=== PATIENT | female | born 2000 | race American Indian/Alaskan Native ===

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

== ENCOUNTER 2020-01-17 04:06 | Outpatient (CLI) | payer MEDICAID ==
[2020-01-17 04:47] VITALS: BP 118/63
[2020-01-17] MEDS ORDERED: LACTATED RINGERS 1,000 ML IV ONE (04:49)
--- NOTE | 2020-01-17 06:25 | Ultrasound Report ---
ULTRASOUND OBSTETRIC Indication: status, maternal pelvic pain. Findings: There is a single intrauterine . BPD = 5 cm = 21 weeks, 1 day(s). Head circumference = 28.2 cm = 21 weeks, 2 day(s). Abdominal circumference = 17 cm = 22 weeks, 2 day(s). Femur length = 3.5 cm = 21 weeks, 0 day(s). Overall estimated sonographic age = 21 weeks, 3 day(s). heart rate is 129 beats per minute. Estimated weight is 440 grams position is cephalic. Cervix appears closed. Cervical length 6.4 cm per movement is present. Placenta is posterior and grade 0 . Amniotic fluid volume appears normal. Maternal adnexa appear normal. Impression: 1. Single living intrauterine with estimated sonographic age of 21 weeks, 3 day(s). 2. Prominent 8 x 5 x 5 cm uterine fibroid just posterior to the cervix in the lower uterine segment. Signer Name: Frank Estes MD Signed: 01/17/2020 6:21 AM Workstation Name: [id number]
== END 2020-01-17 07:00 | disposition home or self-care (01) ==
LOC: TRG 04:06 → APU 04:08 → TRG 07:00
PROVIDERS: ATTEND Obstetrics & Gynecology
DX: O46.8X2 Other antepartum hemorrhage, second trimester (principal); Z3A.21 21 weeks gestation of pregnancy
CPT/HCPCS: 59025; 76805

== ENCOUNTER 2021-04-14 13:49 | Emergency (ER) | payer MEDICAID ==
--- NOTE | 2021-04-14 14:03 | Emergency Department Report ---
ED Seizure HPI - General Chief Complaint: Seizure Stated Complaint: SEIZURE LIKE ACTIVITY Time Seen by Provider: 04/14/21 14:01 Source: EMS Mode of arrival: Ambulatory Limitations: No Limitations - History of Present Illness Initial Comments: Patient brought in by EMS for possible seizure. They were called for seizure. They found the patient to be normal. During transport, she had some seizure type activity but was not postictal. She was interactive during this episode. They believe that this was a pseudoseizure. Patient states that she was under a lot of stress. She has been told that she has seizures related to stress. She is here today because she was feeling stressed. She was getting to take her daughter to the hospital because her daughter was having trouble breathing. She states that she just does not remember anything else. She is complaining of a headache. There is no blurry vision or double vision. She is no chest pain or shortness of breath herself. She has had no vomiting or diarrhea. There is no recent history of head trauma. She has seen a neurologist. She was told that she should take medication for her seizures and stress. She has not been taking medication because her Medicaid was not active. She does not know the name of the medication. - Related Data Home Medications Medication Instructions Recorded Confirmed Last Taken Ferrous Sulfate [Feosol 325 MG tab] 1 tab PO DAILY 04/02/19 04/25/19 03/17/19 Vit-Fe Fumar-FA [ 1 tab PO DAILY 04/02/19 04/25/19 03/31/19 Vitamin] buPROPion SR [Wellbutrin SR] 1 tab PO DAILY 04/02/19 04/25/19 02/28/19 Previous Rx's Medication Instructions Recorded Last Taken Type HYDROcodone/APAP 5-325 [[place] 1 - 2 each PO Q4HR PRN #30 tablet 04/23/19 Unknown Rx 5/325] Ferrous Sulfate [Feosol 325 MG tab] 325 mg PO QDAY 30 Days #30 tablet 04/27/19 Unknown Rx labetaloL [Labetalol 100mg TAB] 300 mg PO BID 7 Days #14 tablet 04/27/19 Unknown Rx Naproxen 500 mg PO Q12H PRN #30 tablet 06/12/19 Unknown Rx Ondansetron [Zofran ODT TAB] 4 mg PO Q6HR PRN #15 tab.rapdis 12/31/19 Unknown Rx hydrOXYzine HCL [Atarax] 25 mg PO Q6HR PRN #20 tablet 04/14/21 Unknown Rx Allergies Allergy/AdvReac Type Severity Reaction Status Date / Time shrimp Allergy Swelling Verified 04/18/19 14:26 ED Review of Systems ROS: Stated complaint: SEIZURE LIKE ACTIVITY Other details as noted in HPI Comment: All other systems reviewed and negative Constitutional: denies: fever Eyes: denies: vision change ENT: denies: throat pain Respiratory: denies: cough Cardiovascular: denies: chest pain Endocrine: denies: unexplained weight loss Gastrointestinal: denies: abdominal pain Genitourinary: denies: dysuria Musculoskeletal: denies: back pain Skin: denies: rash Neurological: as per HPI Hematological/Lymphatic: denies: easy bruising ED Past Medical Hx - Past Medical History Hx Hypertension: Yes Hx Congestive Heart Failure: No Hx Diabetes: No Hx Deep Vein Thrombosis: No Hx GERD: Yes Hx Renal Disease: No Hx Sickle Cell Disease: No Hx Seizures: No Hx Asthma: Yes (Last Attack age 15 yrs) Hx COPD: No Hx HIV: No Additional medical history: bronchitis. Anemia. Fibroids - Surgical History Additional Surgical History: - Family History Family history: no significant - Social History Smoking Status: Never Smoker Substance Use Type: None - Medications Home Medications: Home Medications Medication Instructions Recorded Confirmed Last Taken Type Ferrous Sulfate [Feosol 325 MG tab] 1 tab PO DAILY 04/02/19 04/25/19 03/17/19 History Vit-Fe Fumar-FA [ 1 tab PO DAILY 04/02/19 04/25/19 03/31/19 History Vitamin] buPROPion SR [Wellbutrin SR] 1 tab PO DAILY 04/02/19 04/25/19 02/28/19 History HYDROcodone/APAP 5-325 [[place] 1 - 2 each PO Q4HR PRN #30 tablet 04/23/19 Unknown Rx 5/325] Ferrous Sulfate [Feosol 325 MG tab] 325 mg PO QDAY 30 Days #30 tablet 04/27/19 Unknown Rx labetaloL [Labetalol 100mg TAB] 300 mg PO BID 7 Days #14 tablet 04/27/19 Unknown Rx Naproxen 500 mg PO Q12H PRN #30 tablet 06/12/19 Unknown Rx Ondansetron [Zofran ODT TAB] 4 mg PO Q6HR PRN #15 tab.rapdis 12/31/19 Unknown Rx hydrOXYzine HCL [Atarax] 25 mg PO Q6HR PRN #20 tablet 04/14/21 Unknown Rx ED Physical Exam - General Limitations: No Limitations, Other (Pulse ox noted and normal) General appearance: alert, in no apparent distress - Head Head exam: Present: atraumatic, normocephalic, normal inspection - Eye Eye exam: Present: normal appearance, PERRL, EOMI. Absent: scleral icterus - ENT ENT exam: Present: normal exam, normal orophraynx, mucous membranes moist, normal external ear exam - Neck Neck exam: Present: normal inspection. Absent: meningismus - Respiratory Respiratory exam: Present: normal lung sounds bilaterally. Absent: respiratory distress - Cardiovascular Cardiovascular Exam: Present: regular rate, normal rhythm - GI/Abdominal GI/Abdominal exam: Present: soft. Absent: tenderness - Extremities Exam Extremities exam: Present: normal capillary refill. Absent: pedal edema - Back Exam Back exam: Absent: CVA tenderness (R), CVA tenderness (L) - Neurological Exam Neurological exam: Present: alert, oriented X3, CN II-XII intact, normal gait, reflexes normal. Absent: motor sensory deficit - Psychiatric Psychiatric exam: Present: normal affect, normal mood - Skin Skin exam: Present: warm, dry ED Course - Reevaluation(s) Reevaluation #1: 04/14/21 14:06 EMS was met upon arrival. Patient was seen. She has normal exam. She was discharged. ED Medical Decision Making - Lab Data Rhythm strip: Patient was on a monitor for EMS. Rhythm strip shows a normal sinus rhythm without ectopy. Monitor been observed in seconds. - Medical Decision Making Patient presents with EMS secondary to possible seizure. What they are describing sounds more like pseudoseizure. She has been told that she has stress that causes her seizures. Again, I suspect that these are pseudoseizures. She does not have any focal neurologic findings at this time. I do not believe there is indication for emergent CT or MRI. She has not had any seizure activity here. It is unlikely that this represents any type of electrolyte derangement or hypoglycemia. We have given her Vistaril to use for her stress. She can follow-up with her regular doctor or her neurologist. She does not have any evidence of infectious pathology. There is no other symptomatology suggestive of acute neurologic insult. Critical Care Time: No Critical care attestation.: If time is entered above; I have spent that time in minutes in the direct care of this critically ill patient, excluding procedure time. ED Disposition Clinical Impression: Seizure Disposition: HOME / SELF CARE / HOMELESS Is pt being admited?: No Condition: Stable Instructions: Non-Epileptic Seizures, Adult Additional Instructions: Drink plenty water. Follow-up with your regular doctor. If you do not have a regular doctor, follow-up with the referral physician. Take your medication. Avoid caffeine. Return for problems. Prescriptions: hydrOXYzine HCL [Atarax] 25 mg PO Q6HR PRN #20 tablet PRN Reason: Anxiety Referrals: PRIMARY CARE, [Referring] - 3-5 Days DALIA JAMES MD [Staff Physician] - 3-5 Days
== END 2021-04-14 16:04 | disposition home or self-care (01) ==
LOC: ED 13:49
DX: R56.9 Unspecified convulsions (principal); I10 Essential (primary) hypertension; J45.909 Unspecified asthma, uncomplicated; Z91.013 Allergy to seafood; Z79.899 Other long term (current) drug therapy
CPT/HCPCS: 99282

== ENCOUNTER 2021-07-31 15:57 | Emergency (ER) | payer MEDICAID ==
[2021-07-31 16:19] VITALS: BP 134/54
[2021-07-31] MEDS ORDERED: LORazepam 2 MG/ML VIAL IV ONE (16:20)
[2021-07-31 16:56] LABS: Basophils % (Auto) 0.3 % (0.0-1.8); Eosinophils # (Auto) 0.1 K/mm3 (0.0-0.4); Hematocrit 32.3 % (30.3-42.9); Hemoglobin 10.6 gm/dl (10.1-14.3); Lymphocytes # (Auto) 1.8 K/mm3 (1.2-5.4); Lymphocytes % (Auto) 28.8 % (13.4-35.0); Mean Corpuscular HGB Conc 33 % (30-34); Mean Corpuscular Volume 78 fl (79-97); Monocytes # (Auto) 0.5 K/mm3 (0.0-0.8); Platelet Count 266 K/mm3 (140-440); Red Blood Count 4.12 M/mm3 (3.65-5.03); Red Cell Distribution Width 14.4 % (13.2-15.2)
[2021-07-31 17:09] LABS: Blood Urea Nitrogen 4 mg/dL (7-17); Calcium 8.9 mg/dL (8.4-10.2); Hemolysis Index 225
[2021-07-31 17:22] LABS: BUN/Creatinine Ratio TNR
--- NOTE | 2021-07-31 18:55 | Emergency Department Report ---
ED Psych HPI - General Chief Complaint: Seizure Stated Complaint: SEIZURE Time Seen by Provider: 07/31/21 16:13 Source: EMS Mode of arrival: Stretcher - History of Present Illness Initial Comments: Chief complaint: Seizure HPI: This is a 21-year-old female with history of bipolar disorder, schizophrenia, seizure who presents with seizure activity. Patient had a seizure like episode while being evaluated by log processor operator in the clinic. She previously took seizure medication. She no longer takes seizure medication. She is not under the care of a psychiatrist. She denies suicidal ideation. She has been stressed because she takes care of her children with little support. In March, patient was diagnosed with nonepileptic seizures during ED encounter. MD Complaint: other (Seizure-like activity) -: Sudden, This afternoon Associated Psychiatric Symptoms: depression History of same: Yes Quality: constant Improves With: none Worsens With: none Context: not taking psychiatric Associated Symptoms: other (Seizure-like activity) Treatments Prior to Arrival: none - Related Data Home Medications Medication Instructions Recorded Confirmed Last Taken Ferrous Sulfate [Feosol 325 MG tab] 1 tab PO DAILY 04/02/19 04/25/19 03/17/19 Vit-Fe Fumar-FA [ 1 tab PO DAILY 04/02/19 07/31/21 03/31/19 Vitamin] buPROPion SR [Wellbutrin SR] 1 tab PO DAILY 04/02/19 07/31/21 02/28/19 Previous Rx's Medication Instructions Recorded Last Taken Type HYDROcodone/APAP 5-325 [[place] 1 - 2 each PO Q4HR PRN #30 tablet 04/23/19 Unknown Rx 5/325] Ferrous Sulfate [Feosol 325 MG tab] 325 mg PO QDAY 30 Days #30 tablet 04/27/19 Unknown Rx labetaloL [Labetalol 100mg TAB] 300 mg PO BID 7 Days #14 tablet 04/27/19 Unknown Rx Naproxen 500 mg PO Q12H PRN #30 tablet 06/12/19 Unknown Rx Ondansetron [Zofran ODT TAB] 4 mg PO Q6HR PRN #15 tab.rapdis 12/31/19 Unknown Rx hydrOXYzine HCL [Atarax] 25 mg PO Q6HR PRN #20 tablet 04/14/21 Unknown Rx Allergies Allergy/AdvReac Type Severity Reaction Status Date / Time shrimp Allergy Swelling Verified 04/18/19 14:26 ED Review of Systems ROS: Stated complaint: SEIZURE Other details as noted in HPI Comment: All other systems reviewed and negative Constitutional: denies: chills, fever, malaise Cardiovascular: denies: chest pain Gastrointestinal: denies: abdominal pain, nausea, vomiting Psychiatric: depression. denies: auditory hallucinations, visual hallucinations, homicidal thoughts, suicidal thoughts ED Past Medical Hx - Past Medical History Previous Medical History?: Yes Hx Hypertension: Yes Hx Congestive Heart Failure: No Hx Diabetes: No Hx Deep Vein Thrombosis: No Hx GERD: Yes Hx Renal Disease: No Hx Sickle Cell Disease: No Hx Seizures: No Hx Psychiatric Treatment: Yes (Bipolar disorder, schizophrenia) Hx Asthma: Yes (Last Attack age 15 yrs) Hx COPD: No Hx HIV: No Additional medical history: bronchitis. Anemia. Fibroids - Surgical History Past Surgical History?: Yes Additional Surgical History: - Social History Smoking Status: Never Smoker Substance Use Type: None - Medications Home Medications: Home Medications Medication Instructions Recorded Confirmed Last Taken Type Ferrous Sulfate [Feosol 325 MG tab] 1 tab PO DAILY 04/02/19 04/25/19 03/17/19 History Vit-Fe Fumar-FA [ 1 tab PO DAILY 04/02/19 07/31/21 03/31/19 History Vitamin] buPROPion SR [Wellbutrin SR] 1 tab PO DAILY 04/02/19 07/31/21 02/28/19 History HYDROcodone/APAP 5-325 [[place] 1 - 2 each PO Q4HR PRN #30 tablet 04/23/19 07/31/21 Unknown Rx 5/325] Ferrous Sulfate [Feosol 325 MG tab] 325 mg PO QDAY 30 Days #30 tablet 04/27/19 07/31/21 Unknown Rx labetaloL [Labetalol 100mg TAB] 300 mg PO BID 7 Days #14 tablet 04/27/19 07/31/21 Unknown Rx Naproxen 500 mg PO Q12H PRN #30 tablet 06/12/19 07/31/21 Unknown Rx Ondansetron [Zofran ODT TAB] 4 mg PO Q6HR PRN #15 tab.rapdis 12/31/19 07/31/21 Unknown Rx hydrOXYzine HCL [Atarax] 25 mg PO Q6HR PRN #20 tablet 04/14/21 07/31/21 Unknown Rx ED Physical Exam - General Limitations: No Limitations General appearance: alert, in no apparent distress, other (Patient makes eye contact. She has purposeful movement. She is constantly rocking back and forth) - Head Head exam: Present: atraumatic, normocephalic - Eye Eye exam: Present: normal appearance - ENT ENT exam: Present: mucous membranes moist - Neck Neck exam: Present: normal inspection, full ROM - Respiratory Respiratory exam: Present: normal lung sounds bilaterally. Absent: respiratory distress, wheezes, rales, rhonchi - Cardiovascular Cardiovascular Exam: Present: regular rate, normal rhythm, normal heart sounds. Absent: systolic murmur, diastolic murmur, rubs, gallop - GI/Abdominal GI/Abdominal exam: Present: soft, normal bowel sounds. Absent: distended, tenderness, guarding, rebound - Extremities Exam Extremities exam: Present: normal inspection - Back Exam Back exam: Present: normal inspection - Neurological Exam Neurological exam: Present: alert, oriented X3 - Psychiatric Psychiatric exam: Present: depressed, flat affect - Skin Skin exam: Present: warm, dry, intact, normal color. Absent: rash ED Course Vital Signs 07/31/21 07/31/21 07/31/21 16:02 16:03 16:17 Temperature 98.3 F Pulse Rate 86 99 H Respiratory 16 28 H Rate Blood Pressure 104/80 134/54 [Right] O2 Sat by Pulse 100 99 100 Oximetry 07/31/21 18:02 Temperature 98.6 F Pulse Rate 93 H Respiratory 17 Rate Blood Pressure 134/54 [Right] O2 Sat by Pulse 100 Oximetry ED Medical Decision Making - Lab Data Result diagrams: 07/31/21 16:44 07/31/21 16:44 - Medical Decision Making 1. Nonepileptic seizure triggered by social stressors. IV Ativan improved patient's symptoms. 2. Bipolar disorder, schizophrenia: Patient was evaluated by mental health dealership manager. I agree that patient is stable for discharge. She was given outpatient resources. She does have access to mental health provider. CBC chemistry serum toxicology screen all reviewed within normal limits. Critical care attestation.: If time is entered above; I have spent that time in minutes in the direct care of this critically ill patient, excluding procedure time. ED Disposition Clinical Impression: Psychogenic nonepileptic seizure, Bipolar disorder, Schizophrenia Disposition: / SELF CARE / HOMELESS Is pt being admited?: No Does the pt Need Aspirin: No Condition: Stable Instructions: Non-Epileptic Seizures, Adult Additional Instructions: Professional and Agency Contacts To help [facility](20/01) [place] Crisis Line: Suicide Prevention Line: Crisis Text Line: Text START to [phone] Emergency: 911 Outpatient [facility] Behavioral Health Resources: PAULA: [facility] [address] [place], [place] [address] PADDY: [facility] [address] [place] [address] PAOLO: [facility] - [address] [place] [address] Friday thru Friday - 8am - 5pm ARLEY: [facility] Service Address: [address] PRITCHARD: [facility] Address: [address] [place] [address] Friday thru Friday- 7am-2pm [facility] Address: [address] [place] [address] Friday thru Friday: 8:30AM-5PM OUTPATIENT MENTAL HEALTH RESOURCES [facility], [address] [place] [address] [facility] Henok Vicente MD: [address] [facility] [address] [place], [place] [id number] [facility]: [address] [place] [address] [employer] [place] [id number] [phone] [facility]: [address] [facility] [address] [place], [place] [id number] [facility]: [address] [facility] [address] [facility] [id number] [facility]: [address] [place] [address] Gilberto Ortiz MD: [address] [place] [address] [facility]: [address] [place] [id number] [phone] [place] CRISIS AND ACCESS LINE: *
== END 2021-07-31 19:15 | disposition home or self-care (01) ==
LOC: ED 15:57
DX: F44.5 Conversion disorder with seizures or convulsions (principal); F31.9 Bipolar disorder, unspecified; F20.9 Schizophrenia, unspecified; I10 Essential (primary) hypertension; K21.9 Gastro-esophageal reflux disease without esophagitis; Z79.899 Other long term (current) drug therapy; Z98.890 Other specified postprocedural states; Z91.013 Allergy to seafood
CPT/HCPCS: 36415; 80048; 80320; 85025; 99283; G0480

== ENCOUNTER 2021-08-03 21:03 | Emergency (ER) | payer MEDICAID ==
[2021-08-03] MEDS ORDERED: SODIUM CHLORIDE 0.9% 1000 ML 1,000 ML IV ONE (21:53)
[2021-08-03] MEDS ORDERED: ONDANSETRON 4 MG/2 ML INJ IV ONE (21:54)
[2021-08-03 22:16] LABS: Hematocrit 35.9 % (30.3-42.9); Hemoglobin 11.8 gm/dl (10.1-14.3); Mean Corpuscular HGB Conc 33 % (30-34); Mean Corpuscular Volume 78 fl (79-97); Platelet Count 278 K/mm3 (140-440); Red Blood Count 4.59 M/mm3 (3.65-5.03)
[2021-08-03 22:25] LABS: INR 0.95 (0.87-1.13)
[2021-08-03 22:30] LABS: Albumin 3.8 g/dL (3.9-5); Blood Urea Nitrogen 6 mg/dL (7-17); Calcium 8.8 mg/dL (8.4-10.2); Hemolysis Index 0
[2021-08-03] MEDS ORDERED: levETIRAcetam 500 MG in DEXTROSE 5% IN WATER 100 ML IV ONE (22:30)
[2021-08-03 22:54] LABS: Alanine Aminotransferase < 5 units/L (7-56); BUN/Creatinine Ratio 10
[2021-08-03 23:07] LABS: Anisocytosis 1+; Basophils % (Manual) 0 % (0.0-1.8); Eosinophils % (Manual) 0 % (0.0-4.3); Hypochromasia 1+; Platelet Estimate Consistent w Auto; Total Cells Counted 100
[2021-08-03 23:48] LABS: Uric Acid 3.7 mg/dL (3.5-7.6)
[2021-08-04 00:40] VITALS: BP 91/43
--- NOTE | 2021-08-04 00:56 | Emergency Department Report ---
ED General Adult HPI - General Chief complaint: Eye Problems Stated complaint: BLURRED VISON SINCE 1899 PUI?: No Time Seen by Provider: 08/03/21 21:50 Source: patient, EMS Mode of arrival: Stretcher Limitations: Physical Limitation - History of Present Illness -: Gradual, days(s) Consistency: intermittent Improves with: none Worsens with: none - Related Data Home Medications Medication Instructions Recorded Confirmed Last Taken Ferrous Sulfate [Feosol 325 MG tab] 1 tab PO DAILY 04/02/19 04/25/19 03/17/19 Vit-Fe Fumar-FA [ 1 tab PO DAILY 04/02/19 07/31/21 03/31/19 Vitamin] buPROPion SR [Wellbutrin SR] 1 tab PO DAILY 04/02/19 07/31/21 02/28/19 Previous Rx's Medication Instructions Recorded Last Taken Type HYDROcodone/APAP 5-325 [[place] 1 - 2 each PO Q4HR PRN #30 tablet 04/23/19 Unknown Rx 5/325] Ferrous Sulfate [Feosol 325 MG tab] 325 mg PO QDAY 30 Days #30 tablet 04/27/19 Unknown Rx labetaloL [Labetalol 100mg TAB] 300 mg PO BID 7 Days #14 tablet 04/27/19 Unknown Rx Naproxen 500 mg PO Q12H PRN #30 tablet 06/12/19 Unknown Rx Ondansetron [Zofran ODT TAB] 4 mg PO Q6HR PRN #15 tab.rapdis 12/31/19 Unknown Rx hydrOXYzine HCL [Atarax] 25 mg PO Q6HR PRN #20 tablet 04/14/21 Unknown Rx Allergies Allergy/AdvReac Type Severity Reaction Status Date / Time shrimp Allergy Swelling Verified 04/18/19 14:26 ED Review of Systems ROS: Stated complaint: BLURRED VISON SINCE 1899 Other details as noted in HPI Constitutional: denies: chills, fever Eyes: denies: eye pain, eye discharge, vision change ENT: denies: ear pain, throat pain Respiratory: denies: cough, shortness of breath, wheezing Cardiovascular: denies: chest pain, palpitations Endocrine: no symptoms reported Gastrointestinal: denies: abdominal pain, nausea, diarrhea Genitourinary: denies: urgency, dysuria, discharge Musculoskeletal: denies: back pain, joint swelling, arthralgia Skin: denies: rash, lesions Neurological: denies: headache, weakness, paresthesias Psychiatric: denies: anxiety, depression Hematological/Lymphatic: denies: easy bleeding, easy bruising ED Past Medical Hx - Past Medical History Hx Hypertension: Yes Hx Congestive Heart Failure: No Hx Diabetes: No Hx Deep Vein Thrombosis: No Hx GERD: Yes Hx Renal Disease: No Hx Sickle Cell Disease: No Hx Seizures: No Hx Psychiatric Treatment: Yes (Bipolar disorder, schizophrenia) Hx Asthma: Yes (Last Attack age 15 yrs) Hx COPD: No Hx HIV: No Additional medical history: PSEUDO SEIZURE, bronchitis. Anemia. Fibroids - Surgical History Additional Surgical History: - Social History Smoking Status: Never Smoker Substance Use Type: None - Medications Home Medications: Home Medications Medication Instructions Recorded Confirmed Last Taken Type Ferrous Sulfate [Feosol 325 MG tab] 1 tab PO DAILY 04/02/19 04/25/19 03/17/19 History Vit-Fe Fumar-FA [ 1 tab PO DAILY 04/02/19 07/31/21 03/31/19 History Vitamin] buPROPion SR [Wellbutrin SR] 1 tab PO DAILY 04/02/19 07/31/21 02/28/19 History HYDROcodone/APAP 5-325 [[place] 1 - 2 each PO Q4HR PRN #30 tablet 04/23/19 07/31/21 Unknown Rx 5/325] Ferrous Sulfate [Feosol 325 MG tab] 325 mg PO QDAY 30 Days #30 tablet 04/27/19 07/31/21 Unknown Rx labetaloL [Labetalol 100mg TAB] 300 mg PO BID 7 Days #14 tablet 04/27/19 07/31/21 Unknown Rx Naproxen 500 mg PO Q12H PRN #30 tablet 06/12/19 07/31/21 Unknown Rx Ondansetron [Zofran ODT TAB] 4 mg PO Q6HR PRN #15 tab.rapdis 12/31/19 07/31/21 Unknown Rx hydrOXYzine HCL [Atarax] 25 mg PO Q6HR PRN #20 tablet 04/14/21 07/31/21 Unknown Rx ED Physical Exam - General Limitations: Physical Limitation General appearance: alert, in no apparent distress - Head Head exam: Present: atraumatic, normocephalic - Eye Eye exam: Present: normal appearance - ENT ENT exam: Present: mucous membranes moist - Neck Neck exam: Present: normal inspection - Respiratory Respiratory exam: Present: normal lung sounds bilaterally. Absent: respiratory distress - Cardiovascular Cardiovascular Exam: Present: regular rate, normal rhythm. Absent: systolic murmur, diastolic murmur, rubs, gallop - GI/Abdominal GI/Abdominal exam: Present: soft, normal bowel sounds - Extremities Exam Extremities exam: Present: normal inspection - Back Exam Back exam: Present: normal inspection - Neurological Exam Neurological exam: Present: alert, oriented X3 - Psychiatric Psychiatric exam: Present: normal affect, normal mood - Skin Skin exam: Present: warm, dry, intact, normal color. Absent: rash ED Course Vital Signs 08/03/21 08/03/21 08/03/21 21:11 21:38 21:45 Temperature 98.5 F Pulse Rate 78 80 Respiratory 16 20 Rate Blood Pressure 108/65 Blood Pressure 116/74 [Left] O2 Sat by Pulse 99 100 99 Oximetry 08/03/21 08/03/21 08/03/21 22:01 22:15 22:29 Temperature Pulse Rate 73 76 78 Respiratory 16 17 16 Rate Blood Pressure 96/61 96/61 107/46 Blood Pressure [Left] O2 Sat by Pulse 100 100 100 Oximetry 08/03/21 08/03/21 08/03/21 22:31 23:01 23:31 Temperature Pulse Rate 75 80 74 Respiratory 24 23 24 Rate Blood Pressure 107/46 95/47 98/50 Blood Pressure [Left] O2 Sat by Pulse 100 100 99 Oximetry 08/04/21 08/04/21 00:01 00:31 Temperature Pulse Rate 78 79 Respiratory 17 18 Rate Blood Pressure 99/42 91/43 Blood Pressure [Left] O2 Sat by Pulse 98 97 Oximetry - Reevaluation(s) Reevaluation #1: 08/04/21 00:53 work up negative , FHT normal ,keppra loaded feels better vss no distress ED Medical Decision Making - Lab Data Result diagrams: 08/03/21 21:53 08/03/21 21:53 Critical care attestation.: If time is entered above; I have spent that time in minutes in the direct care of this critically ill patient, excluding procedure time. ED Disposition Clinical Impression: Seizure Disposition: 01 HOME / SELF CARE / HOMELESS Is pt being admited?: No Does the pt Need Aspirin: No Condition: Stable Referrals: REINA ROSE MD [Primary Care Provider] - 3-5 Days
[2021-08-04] MEDS ORDERED: K-LYTE 25 MEQ TABLET EFF PO SCH (10:00)
--- NOTE | 2021-08-05 14:28 | Electrocardiograph Report ---
[facility] Test Date: 2021-08-03 Test Time: 22:25:40 Pat Name: ALLA SCHERER Department: Room: Gender: F [employer]: ER : 2000 Requested By: BEN TRIPP Order Number: [id number] Reading MD: Barney Purcell Measurements Intervals [place] Rate: 79 P: 52 VA: 170 QRS: 28 QRSD: 92 T: 34 QT: 374 QTc: 429 Interpretive Statements Sinus rhythm No previous ECG available for comparison Electronically Signed On 08-05-2021 14:28:15 EST by Barney Purcell
== END 2021-08-04 02:14 | disposition home or self-care (01) ==
LOC: ED 21:03
DX: R56.9 Unspecified convulsions (principal); I10 Essential (primary) hypertension; F31.9 Bipolar disorder, unspecified; F20.9 Schizophrenia, unspecified; K21.9 Gastro-esophageal reflux disease without esophagitis; Z98.890 Other specified postprocedural states; Z91.013 Allergy to seafood; Z79.899 Other long term (current) drug therapy
CPT/HCPCS: 36415; 80053; 82550; 84550; 85007; 85025; 85610; 93005; 93010; 96361; 96374; 96375; 99284; J1953; J2405; J7030; J7060; Q0162

== ENCOUNTER 2021-10-09 01:26 | Outpatient (CLI) | payer MEDICAID ==
[2021-10-09] MEDS ORDERED: LACTATED RINGERS 500 ML IV ONE (01:50)
[2021-10-09 01:53] VITALS: BP 106/53
[2021-10-09 02:45] LABS: Bilirubin,Urine NEG (Negative); Blood,Urine NEG (Negative); Color,Urine Straw (Yellow); Protein,Urine <15 mg/dL mg/dL (Negative); Urobilinogen,Urine < 2.0 mg/dL (<2.0)
[2021-10-09 03:44] LABS: RBC,Urine < 1.0 /HPF (0.0-6.0)
== END 2021-10-09 03:54 | disposition home or self-care (01) ==
LOC: TRG 01:26 → APU 01:29 → TRG 03:54
PROVIDERS: ATTEND Obstetrics & Gynecology
DX: O46.92 Antepartum hemorrhage, unspecified, second trimester (principal); O42.90 Premature rupture of membranes, unspecified as to length of time between rupture and onset of labor, unspecified weeks of gestation; Z3A.21 21 weeks gestation of pregnancy
CPT/HCPCS: 59025; 81001

== ENCOUNTER 2021-10-14 13:15 | Outpatient (CLI) | payer MEDICAID ==
[2021-10-14 13:45] VITALS: BP 107/51
[2021-10-14] MEDS ORDERED: LACTATED RINGERS 500 ML IV ONE (14:00)
[2021-10-14 15:13] LABS: Bilirubin,Urine NEG (Negative); Blood,Urine NEG (Negative); Color,Urine Colorless (Yellow); Protein,Urine <15 mg/dL mg/dL (Negative); RBC,Urine < 1.0 /HPF (0.0-6.0); Urobilinogen,Urine < 2.0 mg/dL (<2.0); WBC,Urine < 1.0 /HPF (0.0-6.0)
== END 2021-10-14 16:00 | disposition home or self-care (01) ==
LOC: TRG 13:15 → APU 13:16 → TRG 16:00
PROVIDERS: ATTEND Obstetrics & Gynecology
DX: O26.892 Other specified pregnancy related conditions, second trimester (principal); M54.9 Dorsalgia, unspecified; R10.30 Lower abdominal pain, unspecified
CPT/HCPCS: 59025; 81001

== ENCOUNTER 2021-10-30 23:58 | Outpatient (CLI) | payer MEDICAID ==
[2021-10-31] MEDS ORDERED: LACTATED RINGERS 500 ML IV ONE (00:15)
[2021-10-31 00:20] VITALS: BP 103/55
--- NOTE | 2021-10-31 02:32 | Ultrasound Report ---
ULTRASOUND OBSTETRIC LIMITED INDICATION / CLINICAL INFORMATION: KATHY, CERVICAL LENGTH. Clinical Gestational Age (GA) in weeks, days: 24, 2 TECHNIQUE: Transabdominal. COMPARISON: Limited OB ultrasound 10/21/2021 FINDINGS: HEART RATE (beats per minute): 146 AMNIOTIC FLUID INDEX (cm) = 15.4 (normal = 7-24 cm) PRESENTATION: Cephalic. ADDITIONAL FINDINGS: Cervix measures 5.1 cm. Endocervical canal appears closed. IMPRESSION: 1. No significant abnormality. Signer Name: Jesse Cooper II, MD Signed: 10/31/2021 2:28 AM Workstation Name: [id number]
--- NOTE | 2021-10-31 04:20 | Event Note ---
Date: 10/31/21 IUP @ 24 wks presents via EMS with complaint of leakage of fluids. Upon arrival to triage, EMS reports patient was found in a large clear puddle of fluid at her home. Stretcher sheets saturated in clear fluid upon arrival. Upon assessment of patient, lying right lateral in bed, talking on phone in no acute distress. Pt states she noticed gush of clear fluid and continued leaking down her leg after voiding and having a BM around 1900 this evening. Cat 1 tracing. VSS. Affirms movement and denies dysuria, hematuria, vaginal bleeding, chest pain, SOB, vision changes and headaches. Upon questioning also endorsing constant vaginal pain and intermittent lower abdominal cramping pain x1 month. Reports 1 episode of emesis x1 today after not having had emesis x2 months. Reports no recent seizures, compliant with prescribed anti-seizure medications. Ultrasound ordered: KATHY 15, cervical length, 5 and cervix appears closed via transabdominal ultrasound. Upon visual exam of perineum, no fluid or discharge noted. Pt declines providing UA specimen for UA/UC. Pt reports her next [facility] appt is on , 11/02. Discharged home in stable condition.
== END 2021-10-31 03:05 | disposition home or self-care (01) ==
LOC: TRG 23:58 → APU 10-31 00:09 → TRG 10-31 03:05
PROVIDERS: ATTEND Obstetrics & Gynecology
DX: Z34.92 Encounter for supervision of normal pregnancy, unspecified, second trimester (principal); Z3A.24 24 weeks gestation of pregnancy
CPT/HCPCS: 59025; 76815

== ENCOUNTER 2021-12-20 01:16 | Outpatient (CLI) | payer MEDICAID, OTHER ==
[2021-12-20 01:41] VITALS: BP 115/65
[2021-12-20] MEDS ORDERED: LACTATED RINGERS 500 ML IV ONE (02:07)
[2021-12-20] MEDS ORDERED: ONDANSETRON 4 MG/2 ML INJ IV ONE (03:12)
== END 2021-12-20 03:30 | disposition home or self-care (01) ==
LOC: TRG 01:16 → APU 01:18 → TRG 03:30
PROVIDERS: ATTEND Obstetrics & Gynecology
DX: O26.893 Other specified pregnancy related conditions, third trimester (principal); R10.9 Unspecified abdominal pain; O99.513 Diseases of the respiratory system complicating pregnancy, third trimester; J45.909 Unspecified asthma, uncomplicated; O99.613 Diseases of the digestive system complicating pregnancy, third trimester; K21.9 Gastro-esophageal reflux disease without esophagitis; O99.213 Obesity complicating pregnancy, third trimester; E66.01 Morbid (severe) obesity due to excess calories; O99.323 Drug use complicating pregnancy, third trimester; F12.90 Cannabis use, unspecified, uncomplicated; O99.333 Smoking (tobacco) complicating pregnancy, third trimester; F17.200 Nicotine dependence, unspecified, uncomplicated; Z3A.31 31 weeks gestation of pregnancy
CPT/HCPCS: J7120

== ENCOUNTER 2021-12-28 23:21 | Outpatient (CLI) | payer OTHER ==
[2021-12-29 00:26] LABS: Bilirubin,Urine NEG (Negative); Blood,Urine NEG (Negative); Color,Urine Yellow (Yellow); Mucus,Urine FEW /HPF; Protein,Urine <15 mg/dL mg/dL (Negative); Urobilinogen,Urine < 2.0 mg/dL (<2.0)
[2021-12-29 00:36] LABS: RBC,Urine < 1.0 /HPF (0.0-6.0)
[2021-12-29] MEDS ORDERED: ACETAMINOPHEN 500 MG TAB PO STA (00:54)
[2021-12-29 00:58] VITALS: BP 118/58
== END 2021-12-29 01:55 | disposition home or self-care (01) ==
LOC: TRG 23:21 → APU 23:22 → TRG 12-29 01:55
PROVIDERS: ATTEND Student in an Organized Health Care Education/Training Program
DX: O47.03 False labor before 37 completed weeks of gestation, third trimester (principal); Z3A.32 32 weeks gestation of pregnancy
CPT/HCPCS: 81001; 82962

== ENCOUNTER 2022-01-18 15:00 | Outpatient (CLI) | payer SELFPAY ==
[2022-01-18 16:16] VITALS: BP 111/58
[2022-01-18 17:24] LABS: Bacteria,Urine 1+ /HPF (Negative); Mucus,Urine 2+ /HPF
[2022-01-18] MEDS ORDERED: LACTATED RINGERS 500 ML IV ONE (17:28)
[2022-01-18 17:59] LABS: Color,Urine Yellow (Yellow)
[2022-01-18 18:00] LABS: Bilirubin,Urine Negative (Negative); Blood,Urine Negative (Negative); Urobilinogen,Urine < 2.0 mg/dL (<2.0)
== END 2022-01-18 18:50 | disposition home or self-care (01) ==
LOC: TRG 15:00 → APU 15:01 → TRG 18:50
PROVIDERS: ATTEND Obstetrics & Gynecology
DX: O26.893 Other specified pregnancy related conditions, third trimester (principal); R10.9 Unspecified abdominal pain; Z3A.35 35 weeks gestation of pregnancy
CPT/HCPCS: 59025; 81001

== ENCOUNTER 2022-01-24 11:00 | Outpatient (CLI) | payer MEDICAID ==
[2022-01-24 11:56] VITALS: BP 108/55
[2022-01-24] MEDS ORDERED: LACTATED RINGERS 1,000 ML ONE (12:31)
[2022-01-24] MEDS ORDERED: LACTATED RINGERS 500 ML IV ONE (12:45)
--- NOTE | 2022-01-24 13:49 | Ultrasound Report ---
US OB BPP wo non-stress INDICATION / CLINICAL INFORMATION: wellbeing. TECHNIQUE: Transabdominal. Duplex Color Doppler used: Yes. COMPARISON: None available FINDINGS: Biophysical Profile: breathing movements: 2 movements:2 posture and tone:2 Qualitative amniotic fluid volume: 2 Cephalic positioning. heart rate is 146 bpm IMPRESSION: 1. Biophysical profile 8 of 8. Signer Name: Shyam Moreland MD Signed: 01/24/2022 1:45 PM Workstation Name: [id number]
== END 2022-01-24 14:10 | disposition home or self-care (01) ==
LOC: TRG 11:00 → APU 11:01 → TRG 14:10
PROVIDERS: ATTEND Obstetrics & Gynecology
DX: O26.893 Other specified pregnancy related conditions, third trimester (principal); R11.10 Vomiting, unspecified; Z3A.36 36 weeks gestation of pregnancy
CPT/HCPCS: 76819; J7120

== ENCOUNTER 2022-02-03 23:54 | Outpatient (CLI) | payer MEDICAID ==
[2022-02-04] MEDS ORDERED: LACTATED RINGERS 1,000 ML ONE (01:08)
[2022-02-04] MEDS ORDERED: TERBUTALINE 1 MG/1 ML INJ SUB-Q ONE (01:34)
[2022-02-04 01:48] VITALS: BP 111/57
== END 2022-02-04 04:48 | disposition home or self-care (01) ==
LOC: TRG 23:54 → APU 23:55 → TRG 02-04 04:48
PROVIDERS: ATTEND Obstetrics & Gynecology
DX: O62.9 Abnormality of forces of labor, unspecified (principal); O24.419 Gestational diabetes mellitus in pregnancy, unspecified control; O13.3 Gestational [pregnancy-induced] hypertension without significant proteinuria, third trimester; O99.613 Diseases of the digestive system complicating pregnancy, third trimester; K21.9 Gastro-esophageal reflux disease without esophagitis; O99.333 Smoking (tobacco) complicating pregnancy, third trimester; F17.200 Nicotine dependence, unspecified, uncomplicated; Z3A.38 38 weeks gestation of pregnancy
CPT/HCPCS: 59025; 96372; J3105

== ENCOUNTER 2022-02-10 01:08 | Outpatient (CLI) | payer MEDICAID ==
[2022-02-10 01:18] VITALS: BP 120/58
--- NOTE | 2022-02-10 02:47 | Ultrasound Report ---
OB ultrasound Biophysical profile INDICATION: well-being FINDINGS: Single live intrauterine with a heart rate 1 35 bpm. Cephalic position. KATHY measures 10. The biophysical profile measures 8 out of 8. IMPRESSION: Normal biophysical profile. Single live intrauterine . Signer Name: Cristobal Alarcon MD Signed: 02/10/2022 2:43 AM Workstation Name: [id number]
== END 2022-02-10 02:40 | disposition home or self-care (01) ==
LOC: TRG 01:08 → APU 01:10 → TRG 02:40
PROVIDERS: ATTEND Obstetrics & Gynecology
DX: Z34.93 Encounter for supervision of normal pregnancy, unspecified, third trimester (principal); Z3A.38 38 weeks gestation of pregnancy
CPT/HCPCS: 76815; 76819

== ENCOUNTER 2022-02-12 14:16 | Inpatient (IN) | payer MEDICAID ==
[2022-02-12] MEDS ORDERED: METOCLOPRAMIDE 10 MG/2 ML INJ IV ONE (15:20)
[2022-02-12] MEDS ORDERED: BICITRA ORAL LIQD 30ML PO ONE (15:20)
[2022-02-12] MEDS ORDERED: FAMOTIDINE 20 MG/2 ML INJ IV ONE (15:20)
[2022-02-12] MEDS ORDERED: LACTATED RINGERS 1,000 ML IV SCH ×2 (15:30→21:30)
[2022-02-12] MEDS ORDERED: LACTATED RINGERS 1,000 ML ONE (15:44)
--- NOTE | 2022-02-12 15:50 | History and Physical Report ---
History of Present Illness Date of examination: 02/12/22 Chief complaint: decreased movement for 2wks and seen here at [facility] 3days ago History of present illness: at 39.1wks by pt's report and U/S done here at [facility] at 24wks in October 2021. Pt is walk in because triage nurse states, pt [facility] and also previously at [facility] and then pt states she jamison somewhere else. Pt states she was told by Lionel that her sugar level was high 2months ago. 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 Pt states that her first c/section due to elevated BP. Pt also states that after her 2nd c/section she got an upper resp infection on the 2nd day after surgery because she would not get out of bed. Pt admits to movment today still decreased, denies vag bleed and SROM meconium stained fluid in triage per nurse. Pt also admits to headache x3 days and her last dose of keppra 1000mg bid last taken yesterday. Pt has asthma and her last wheezing was at 13yrrs old and she uses her inhaler prn now. Past History Past Medical History: asthma, other (heart murmur, epilepsy dx 2yrs ago after her 2nd preg; Morbid obesity) Past Surgical History: section (x2) [employer] History: chlamydia (tx per pt report), trichomonas (tx per pt report) Social history: other (marijuana use 2days ago) - Obstetrical History Expected Date of Delivery: 02/18/22 Actual Gestation: 39 Week(s) 1 Day(s) : 3 Hx # Term Pregnancies: 2 (2nd child with NEC and hernia) Number of Living Children: 2 Medications and Allergies Allergies Allergy/AdvReac Type Severity Reaction Status Date / Time lavender (Lavandula Allergy Hives Verified 02/12/22 14:49 angustifolia) pollen extracts Allergy Itching Verified 02/12/22 14:49 shrimp Allergy Swelling Verified 10/19/21 21:39 Home Medications Medication Instructions Recorded Confirmed Last Taken Type Ferrous Sulfate [Feosol 325 MG tab] 1 tab PO DAILY 04/02/19 02/12/22 03/17/19 History Vit-Fe Fumar-FA [ 1 tab PO DAILY 1002/12/22 03/31/19 History Vitamin] buPROPion SR [Wellbutrin SR] 1 tab PO DAILY 04/02/19 02/12/22 02/28/19 History HYDROcodone/APAP 5-325 [[place] 1 - 2 each PO Q4HR PRN #30 tablet 04/23/19 02/12/22 Unknown Rx 5/325] Ferrous Sulfate [Feosol 325 MG tab] 325 mg PO QDAY 30 Days #30 tablet 04/27/19 02/12/22 Unknown Rx labetaloL [Labetalol 100mg TAB] 300 mg PO BID 7 Days #14 tablet 04/27/19 02/12/22 Unknown Rx Naproxen 500 mg PO Q12H PRN #30 tablet 06/12/19 02/12/22 Unknown Rx Ondansetron [Zofran ODT TAB] 4 mg PO Q6HR PRN #15 tab.rapdis 12/31/19 02/12/22 Unknown Rx hydrOXYzine HCL [Atarax] 25 mg PO Q6HR PRN #20 tablet 04/14/21 02/12/22 Unknown Rx Sertraline [Zoloft] 25 mg PO QDAY #30 tab 10/22/21 02/12/22 Unknown Rx levETIRAcetam [Keppra TAB] 1,000 mg PO BID #60 tablet 10/23/21 02/12/22 02/11/22 21:00 Rx Review of Systems All systems: negative (ctx) - Vital Signs Vital signs: Vital Signs Temp Resp 97.7 F 16 02/12/22 14:52 02/12/22 14:52 Temp Pulse Resp BP Pulse Ox 97.7 F 96 H 16 115/59 98 02/12/22 14:52 02/12/22 15:06 02/12/22 14:52 02/12/22 15:06 02/12/22 15:06 - Physical Exam Breasts: Positive: deferred Cardiovascular: Regular rate Abdomen: Positive: soft Genitourinary (Female): Positive: normal external genitalia Uterus: Positive: enlarged (non-tender, gravid) Extremities: Positive: normal - Obstetrical FHR: category 1 Uterine Contraction Monitor Mode: External Cervical Dilatation: 1 (per triage nurse with mec stained fluid) station: high Uterine Contraction Pattern: Irregular Uterine Contraction Intensity: Moderate Results Result Diagrams: 02/12/22 15:46 02/12/22 15:46 All other labs normal. Assessment and Plan term preg, PROM with mec, H/O c/section x2, non-compliant, h/o epilepsy, asthma, morbid obesity, marijuana use. 2nd child has Necrotizing enterocolitis. Pt now without care; h/o posterior uterine fibroid 6cm 1. Admit to labor and delivery 2. Will check cmp with history of gest HTN, and unclear dx of diabetes. Will add hgb A1c 3. Will check keppra level 4. Will repeat GC/chlam, wetprep with pt history of std and no document of LUCY 5. Pt aware of her SMA gene and FOB not tested 6. Will plan for repeat cesaran section now and will give keppra med for this morning now. All questions encouraged and answered
[2022-02-12] MEDS ORDERED: BUPIVACAINE/PF (0.5%) 5 MG/1 ML 30 ML VIAL INFILTRATI ONE (15:56)
[2022-02-12] MEDS ORDERED: ePHEDrine SULFATE 50 MG/1 ML INJ ONE (15:56)
[2022-02-12] MEDS ORDERED: ONDANSETRON 4 MG/2 ML INJ ONE (15:56)
[2022-02-12] MEDS ORDERED: SODIUM CHLORIDE 0.9% 100 ML ONE (15:56)
[2022-02-12] MEDS ORDERED: PHENYLEPHRINE/NS 1,000 MCG/10 ML SYRINGE (OR USE) IV ONE (15:56)
[2022-02-12] MEDS ORDERED: OXYTOCIN DRIP 30 UNITS/500 ML BAG IV SCH ×2 (16:00→17:00)
[2022-02-12] MEDS ORDERED: HYDROCORTISONE 25 MG RECTAL SUPP PR PRN (16:31)
[2022-02-12] MEDS ORDERED: MORPHINE 4 MG/1 ML INJ IV PRN ×2 (16:31→19:51)
[2022-02-12] MEDS ORDERED: LANOLIN/ZINC/DIMETHICONE (LANSINOH) 7 GM TP PRN (16:31)
[2022-02-12] MEDS ORDERED: SIMETHICONE 80 MG CHEW TAB PO PRN (16:31)
[2022-02-12] MEDS ORDERED: MAGNESIUM HYDROXIDE (MOM) ORAL LIQD UDC PO PRN (16:31)
[2022-02-12] MEDS ORDERED: ONDANSETRON 4 MG/2 ML INJ IV PRN ×2 (16:31→19:51)
[2022-02-12] MEDS ORDERED: WITCH HAZEL/ GLYCERIN PAD TP PRN (16:31)
[2022-02-12] MEDS ORDERED: NALOXONE 0.4 MG/1 ML INJ IV PRN ×2 (16:31→19:51)
[2022-02-12] MEDS ORDERED: SENNOSIDES 8.6 MG TAB PO PRN (16:31)
[2022-02-12] MEDS ORDERED: ACETAMINOPHEN 325 MG TAB PO PRN (16:31)
[2022-02-12] MEDS ORDERED: PROMETHAZINE 25 MG RECT SUPP PR PRN ×2 (16:31→19:51)
[2022-02-12] MEDS ORDERED: oxyCODONE /ACETAMINOPHEN 5-325MG TAB ONE ×2 (16:33→16:34)
[2022-02-12 17:05] LABS: Basophils % (Auto) 0.1 % (0.0-1.8); Eosinophils % (Auto) 0.4 % (0.0-4.3); Hematocrit 31.1 % (30.3-42.9); Hemoglobin 10.1 gm/dl (10.1-14.3); Lymphocytes # (Auto) 1.5 K/mm3 (1.2-5.4); Lymphocytes % (Auto) 16.7 % (13.4-35.0); Mean Corpuscular HGB Conc 33 % (30-34); Mean Corpuscular Volume 77 fl (79-97); Monocytes # (Auto) 0.5 K/mm3 (0.0-0.8); Monocytes % (Auto) 6.2 % (0.0-7.3); Platelet Count 234 K/mm3 (140-440); Red Blood Count 4.05 M/mm3 (3.65-5.03); Red Cell Distribution Width 16.2 % (13.2-15.2)
[2022-02-12 17:31] LABS: Bacteria,Urine 1+ /HPF (Negative)
[2022-02-12 17:33] LABS: Albumin 3.3 g/dL (3.9-5); Blood Urea Nitrogen 5 mg/dL (7-17); Calcium 8.8 mg/dL (8.4-10.2); Hemolysis Index 1
[2022-02-12 17:35] LABS: Alanine Aminotransferase < 5 units/L (7-56); BUN/Creatinine Ratio 10
[2022-02-12 17:37] LABS: Mucus,Urine 1+ /HPF
[2022-02-12 17:39] LABS: Color,Urine Straw (Yellow)
[2022-02-12 17:44] LABS: Amphetamine Screen,Urine Negative; Benzodiazepines Screen,Urine Negative; Cannabinoid Screen,Urine Negative; Cocaine Screen,Urine Negative; Methadone Screen,Urine Negative; Opiate Screen,Urine Negative
[2022-02-12] MEDS ORDERED: KETOROLAC 30 MG/1 ML INJ ONE (18:54)
[2022-02-12] MEDS ORDERED: miSOPROStol 200 MCG TAB ONE (18:59)
--- NOTE | 2022-02-12 19:12 | Procedure Note ---
OB Delivery Note - Delivery Date of Delivery: 02/12/22 Surgeon: SERENITY MERCER Estimated blood loss: other (342cc by QBL) - Section Preop diagnosis: repeat (previous c/s x2), desires sterilization (but no valid tubal papers), other (Uterine fibroid posterior 6cm, h/o epilepsy; non- compliant) Postop diagnosis: same section procedure: repeat low transverse Disposition: floor Complications: none Narrative: Date: 02/12/22 Surgeon: Serenity Mercer MD Preop Dx: IUP at 39.1wks, previous c/section x2, SROM with meconium stained fluid Postop Dx: same and Uterine window and meconium stained Procedure : Repeat Low transverse section Anesthesia: Spinal Intake: 2000cc crystalloids Output: 300cc clear urine at the end of the procedure EBL: 342cc by QBL After the risks, benefits and alternatives of procedure discussed, patient signed consents and was taken to the operating room. Pt was given spinal anesthesia. After same was adequate, patient was prepped and draped in the usual sterile fashion. Umaña catheter in place and draining clear urine. Pt was given prophylactic antibiotic per protocol and time out was done Pfannenstiel skin incision was made and taken sharply to the fascia and the incision extended using electrocautery. Superior edge of the fascia was grasped with beulah clamps and the rectus muscle using blunt dissection and also using electrocautery. Lower portion of the fascia also sharply. Rectus muscle in the midline and Peritoneal cavity entered sharply and extended with good visualization of the bladder. The bladder flap was created sharply using metzenbaum scissors. Lower uterine segment with a 4cm window, paper thin and this entered transversely and amniotic sac entered using allys clamps. Uterine incision extended using bandage scissors. with meconium staining on the entire body delivered, bulb suctioned, cord clamped and baby handed to waiting pediatricians. Posterior Placenta then delivered completely and uterine cavity cleared of all clots and debri. The uterus was not exteriorized and closed in 2 layers using 0-monocryl suture in a running locked fashion and then an additional layer of figure of 8 sutures. Excellent hemostasis noted. Due extensive adhesions, the posterior fibroid not palpated. The gutters were cleared of clots and debri and anterior peritoneum and rectus muscle scar reapproximated using 0-vicryl suture in a continuous fashion. Rectus fascia closed with 0-vicryl suture in a continuous fashion and subcutaneous tissue copiously irrigated with normal saline and re-approximated using 3-0 vicryl suture. Excellent hemostasis remains. The skin was closed with 4-0 monocryl suture and steristrips placed with pressure dressing. Sponge, lap, instrument and needle counts x2 were normal. Patient tolerated the procedure well and was taken to recovery room stable. Pt told tubal ligation could not be done because she did not have valid tubal papers Findings: Viable male infant, APGARS 8/9 and weight 3080g. Irregularly shaped uterus with small uterine window approx 4cm, normal tubes and ovaries bilaterally. - Infant A at 1 minute: 8 at 5 minutes: 9 Infant Gender: Male (wt 3080g; meconium stained fluid and baby skin entirely)
[2022-02-12] MEDS ORDERED: ALBUTEROL 2.5 MG/3 ML NEBU IH PRN (19:44)
[2022-02-12] MEDS ORDERED: HYDROmorphone 1 MG/1 ML INJ IV PRN ×2 (19:51)
[2022-02-12] MEDS ORDERED: PROMETHAZINE 25 MG TAB PO PRN (19:51)
--- NOTE | 2022-02-12 19:53 | Anesthesia Consultation ---
Anesthesia Consult and Med Hx Date of service: 02/12/22 - Airway Anesthetic Teeth Evaluation: Good ROM Head & Neck: Adequate Mental/Hyoid Distance: Adequate Mallampati Class: Class II Intubation Access Assessment: Probably Good - Pulmonary Exam CTA: Yes - Cardiac Exam Cardiac Exam: RRR - Pre-Operative Health Status ASA Pre-Surgery Classification: ASA2 Proposed Anesthetic Plan: Spinal Nerve Block: Dashawn Tap - Pulmonary Hx Smoking: No Hx Asthma: No Hx Respiratory Symptoms: No SOB: No COPD: No Home Oxygen Therapy: No Hx Pneumonia: No Hx Sleep Apnea: No - Cardiovascular System Hx Hypertension: Yes Hx Coronary Artery Disease: No Hx Heart Attack/AMI: No Hx Angina: No Hx Percutaneous Transluminal Coronary Angioplasty (PTCA): No Hx Cardia Arrhythmia: No Hx Pacemaker: No Hx Internal Defibrillator: No Hx Valvular Heart Disease: No Hx Heart Murmur: No Hx Peripheral Vascular Disease: No - Central Nervous System Hx Neuromuscular Disorder: No Hx Seizures: Yes (last episode december 2020) CVA: No Hx Back Pain: No Hx Psychiatric Problems: No - Gastrointestinal Hx Ulcer: No Hx Gastroesophageal Reflux Disease: No - Endocrine Hx Renal Disease: No Hx End Stage Renal Disease: No Hx Cirrhosis: No Hx Liver Disease: No Hx Insulin Dependent Diabetes: No Hx Non-Insulin Dependent Diabetes: No Hx Thyroid Disease: No Hx Hypothyroidism: No Hx Hyperthyroidism: No - Hematic Hx Anemia: Yes Hx Sickle Cell Disease: No - Other Systems Hx Alcohol Use: No Hx Substance Use: No Hx Cancer: No Hx Obesity: Yes
--- NOTE | 2022-02-12 19:53 | Anesthesia Day of Surgery ---
Anesthesia Day of Surgery - Day of Surgery Patient Examined: Yes Patient H&P Reviewed: Yes Patient is NPO: Yes Beta Blockers: No Cardiac Clearance: No Pulmonary Clearance: No William's Test: N/A
--- NOTE | 2022-02-12 19:54 | Progress Note ---
Spinal Anesthesia Block - Spinal Anesthesia Block Start Time: 17:22 Stop Time: 17:27 Performed by:: JULIANA MONROE Procedure: The patient was placed in a sitting position on the OR table and monitors applied. A timeout was performed immediately prior to the start of the procedure. The patient was Prepped and draped in a sterile fashion and the skin was localized with 3 mL 1% lidocaine at L[4]-L[5] interspace. An introducer was placed into the back between L4-L5 and a 25g spinal needle was advanced into the intrathecal space until clear, free flowing CSF was observed. 1.8cc of 0.75% hyperbaric bupivacaine + 0.5mcg Precedex was injected into the intrathecal space and the spinal needle was removed. The patient tolerated the procedure well and there were no immediate complications noted.
--- NOTE | 2022-02-12 19:55 | Progress Note ---
Regional Anesthesia Block - Regional Anesthesia Block Start Time: 19:07 Stop Time: 19:12 Performed By:: JULIANA MONROE Procedure: During the pre-op interview the patient agreed to and signed a consent for a TAP block for post surgical pain management. After her C/S was completed a time out was performed prior to the start of the procedure. The Trans Abdominal Plane was identified bilaterally via ultrasound. The skin was prepped bilaterally with chlorhexidine and a 22g stimuplex needle was advanced to the area between the internal oblique muscle and the trans abdominal plane. Marcaine 0.25% 30mlwas injected under ultrasound guidance on the left and right side. Negative aspiration every 5mL, There was no change in the patients heart rate or rhythm and the patient tolerated the procedure well. No apparent complications were observed.
[2022-02-12] MEDS ORDERED: miSOPROStol 200 MCG TAB PR SCH (20:00)
[2022-02-12] MEDS ORDERED: fentaNYL-BUPIV 2 MCG/ML-0.125% 200 MCG/100 ML BAG EPIDURAL SCH (20:00)
[2022-02-12] MEDS: levETIRAcetam 500 MG TAB PO SCH (21:28)
[2022-02-12] MEDS: D5W/LACTATED RINGERS 1,000 ML IV SCH (21:32)
[2022-02-13] MEDS: oxyCODONE /ACETAMINOPHEN 5-325MG TAB PO PRN ×4 (03:56→22:30)
[2022-02-13] MEDS: levETIRAcetam 500 MG TAB PO SCH ×2 (09:33→22:30)
[2022-02-13] MEDS: D5W/LACTATED RINGERS 1,000 ML IV SCH (09:34)
[2022-02-13] MEDS: FERROUS SULFATE 325 MG TAB PO SCH (09:34)
[2022-02-13] MEDS: PRENATAL VIT27-FE FUMARATE-FOLIC ACID VIT TAB PO SCH (09:35)
[2022-02-13] MEDS: IBUPROFEN 600 MG TAB PO PRN ×2 (09:47→20:26)
--- NOTE | 2022-02-13 10:04 | Post Anesthesia Evaluation ---
- Post Anesthesia Evaluation Patient Participated: Yes Airway Patent: Yes Stable Respiratory Function: Yes Nausea/Vomiting: No Temp > 96.8F: Yes Pain Manageable: Yes Adequeate Hydration: Yes Anesthesia Complications: No Block Receding Appropriately: Yes Patient on Ventilator: No
--- NOTE | 2022-02-13 15:36 | Progress Note ---
Assessment and Plan POD#1 C/S doing fair 1. Pt encouraged to ambulate in room 2. For CBC later today 3. Routine post op care and remove dressing tomorrow. Subjective Date of service: 02/13/22 Principal diagnosis: POD#1 C/S Interval history: pt states that her percocet is the only med that works and she's not sure why they both to give her the motrin med. pt is bottle feeding. pt is voiding without difficulty and passing gas. Vag bleed like a period Objective - Constitutional Vitals: Vital Signs - 12hr 02/13/22 02/13/22 02/13/22 03:56 08:14 08:53 Temperature 97.8 F Pulse Rate 88 Respiratory 18 19 Rate Blood Pressure 107/52 O2 Sat by Pulse 97 Oximetry O2 Sat by Pulse 95 Oximetry [ Throughout] General appearance: Present: no acute distress - Neck Neck: normal ROM - Respiratory Respiratory effort: normal - Breasts Breasts: deferred - Cardiovascular Rhythm: regular Extremities: No edema - Gastrointestinal General gastrointestinal: Present: soft, non-tender, other (Dressing C/D/I) - Integumentary Integumentary: warm, dry - Neurologic Neurologic: moves all extremities - Psychiatric Psychiatric: cooperative - Labs CBC & Chem 7: 02/12/22 15:46 02/12/22 15:46 Labs: Abnormal lab results 02/12/22 02/12/22 02/12/22 Range/Units 15:46 15:46 15:46 MCV 77 L (79-97) fl MCH 25 L (28-32) pg RDW 16.2 H (13.2-15.2) % Seg Neutrophils % 76.6 H (40.0-70.0) % BUN 5 L (7-17) mg/dL Creatinine 0.5 L (0.6-1.2) mg/dL ALT < 5 L (7-56) units/L Alkaline Phosphatase 136 H (35-129) units/L Albumin 3.3 L (3.9-5) g/dL Urine WBC (Auto) 13.0 H (0.0-6.0) /HPF Medications & Allergies - Medications Allergies/Adverse Reactions: Allergies lavender (Lavandula angustifolia) Allergy (Verified 02/12/22 14:49) Hives pollen extracts Allergy (Verified 02/12/22 14:49) Itching shrimp Allergy (Verified 10/19/21 21:39) Swelling Home Medications: Home Medications Medication Instructions Recorded Confirmed Last Taken Type Ferrous Sulfate [Feosol 325 MG tab] 1 tab PO DAILY 04/02/19 02/12/22 03/17/19 History Vit-Fe Fumar-FA [ 1 tab PO DAILY 04/02/19 02/12/22 03/31/19 History Vitamin] buPROPion SR [Wellbutrin SR] 1 tab PO DAILY 04/02/19 02/12/22 02/28/19 History HYDROcodone/APAP 5-325 [[place] 1 - 2 each PO Q4HR PRN #30 tablet 04/23/19 02/12/22 Unknown Rx 5/325] Ferrous Sulfate [Feosol 325 MG tab] 325 mg PO QDAY 30 Days #30 tablet 04/27/19 02/12/22 Unknown Rx labetaloL [Labetalol 100mg TAB] 300 mg PO BID 7 Days #14 tablet 04/27/19 02/12/22 Unknown Rx Naproxen 500 mg PO Q12H PRN #30 tablet 06/12/19 02/12/22 Unknown Rx Ondansetron [Zofran ODT TAB] 4 mg PO Q6HR PRN #15 tab.rapdis 12/31/19 02/12/22 Unknown Rx hydrOXYzine HCL [Atarax] 25 mg PO Q6HR PRN #20 tablet 04/14/21 02/12/22 Unknown Rx Sertraline [Zoloft] 25 mg PO QDAY #30 tab 10/22/21 02/12/22 Unknown Rx levETIRAcetam [Keppra TAB] 1,000 mg PO BID #60 tablet 10/23/21 02/12/22 02/11/22 21:00 Rx Ibuprofen [Motrin] 800 mg PO Q8HR PRN 21 Days #40 02/12/22 Unknown Rx tablet oxyCODONE /ACETAMINOPHEN [Percocet 1 tab PO Q4HR PRN 21 Days #30 tab 02/12/22 Unknown Rx 5/325] Active Medications: Generic Name Dose Route Start Last Admin Trade Name Freq PRN Reason Stop Dose Admin Acetaminophen 650 mg 02/12/22 16:31 Acetaminophen 325 Mg Tab PO Q4H PRN Fever >100.5/ADAMS Albuterol 2.5 mg 02/12/22 19:44 Albuterol 2.5 Mg/3 Ml Nebu IH Q4HRT PRN Shortness Of Breath Diphtheria/Tetanus/Acell Pertussis 0.5 ml 02/14/22 06:00 Tetanus,Diph,Pertuss(Acell) Vaccine 0.5 Ml Syringe IM 02/14/22 06:01 .ONCE ONE Ferrous Sulfate 325 mg 02/13/22 10:00 02/13/22 09:34 Ferrous Sulfate 325 Mg Tab PO 325 mg QDAY JOEY Administration Hydrocortisone Acetate 25 mg 02/12/22 16:31 Hydrocortisone 25 Mg Rectal Supp TX BID PRN Hemorrhoids Hydromorphone HCl 0.5 mg 02/12/22 19:51 Hydromorphone 1 Mg/1 Ml Inj IV 02/13/22 19:50 Q5M PRN BREAK Hydromorphone HCl 0.5 mg 02/12/22 19:51 Hydromorphone 1 Mg/1 Ml Inj IV Q4H PRN breakthrough pain > 7/10 Lactated Ringer's 1,000 mls @ 2,250 mls/hr 02/12/22 15:30 Lactated Ringers IV 02/13/22 15:57 PREOP JOEY Oxytocin/Sodium Chloride 30 units in 500 mls @ 0 mls/hr 02/12/22 16:00 Pitocin/Ns 30 Unit/500ml IV TITR ON LICENSE OF [facility] Protocol As Directed Dextrose/Lactated Ringer's 1,000 mls @ 125 mls/hr 02/12/22 17:00 02/13/22 09:34 D5lr IV 125 mls/hr DIRECT JOEY Administration Oxytocin/Sodium Chloride 30 units in 500 mls @ 40 mls/hr 02/12/22 17:00 Pitocin/Ns 30 Unit/500ml IV TITR ON LICENSE OF [facility] Protocol Fentanyl/Bupivacaine/Sodium Chlor 200 mcg in 100 mls @ 8 mls/hr 02/12/22 20:00 Fentanyl-Bupiv 2 Mcg/Ml-0.125% EPIDURAL TITRATE ON LICENSE OF [facility] Protocol Lactated Ringer's 1,000 mls @ 125 mls/hr 02/12/22 21:30 Lactated Ringers IV DIRECT JOEY Ibuprofen 600 mg 02/12/22 16:31 02/13/22 09:47 Ibuprofen 600 Mg Tab PO 600 mg Q6H PRN Administration Pain, Mild (1-3) Levetiracetam 1,000 mg 02/12/22 16:00 02/13/22 09:33 Levetiracetam 500 Mg Tab PO 1,000 mg BID JOEY Administration Magnesium Hydroxide 30 ml 02/12/22 16:31 Magnesium Hydroxide (Mom) Oral Liqd Udc PO QHS PRN Constip Unrelieved By Senna Misoprostol 800 mcg 02/12/22 20:00 Misoprostol 200 Mcg Tab TX ONCE JOEY Morphine Sulfate 4 mg 02/12/22 16:31 02/13/22 01:38 Morphine 4 Mg/1 Ml Inj IV 4 mg Q4H PRN Administration Pain , Severe (7-10) Morphine Sulfate 2.5 mg 02/12/22 19:51 Morphine 4 Mg/1 Ml Inj IV Q15M PRN BREAK Multi-Ingredient Ointment 1 applic 02/12/22 16:31 Lanolin/Zinc/Dimethicone (Lansinoh) 7 Gm TP PRN PRN dryness/cracking Multivitamins/Iron/Calcium 1 each 02/13/22 10:00 02/13/22 09:35 [id number] Fumarate-Folic Acid Vit Tab PO 1 each QDAY JOEY Administration Naloxone HCl 0.2 mg 02/12/22 19:51 Naloxone 0.4 Mg/1 Ml Inj IV Q2MIN PRN Res Rate </= 8 or 02 SAT < 92% Ondansetron HCl 4 mg 02/12/22 19:51 Ondansetron 4 Mg/2 Ml Inj IV Q8H PRN Nausea And Vomiting Oxycodone/Acetaminophen 2 tab 02/12/22 16:31 02/13/22 11:16 Oxycodone /Acetaminophen 5-325mg Tab PO 2 tab Q4H PRN Administration Pain, Moderate (4-6) Promethazine HCl 25 mg 02/12/22 19:51 Promethazine 25 Mg Tab PO Q6H PRN Nausea And Vomiting Promethazine HCl 25 mg 02/12/22 19:51 Promethazine 25 Mg Rect Supp TX Q6H PRN Nausea And Vomiting Senna 17.2 mg 02/12/22 16:31 Sennosides 8.6 Mg Tab PO QHS PRN Constipation Simethicone 80 mg 02/12/22 16:31 Simethicone 80 Mg Chew Tab PO Q6H PRN Gas pain Sodium Chloride 10 ml 02/12/22 17:00 Sodium Chloride 0.9% 10 Ml Flush Syringe IV PRN JOEY Sodium Chloride 10 ml 02/12/22 20:00 Sodium Chloride 0.9% 10 Ml Flush Syringe IV PRN JOEY [place]/Glycerin 1 each 02/12/22 16:31 [place]/ Glycerin Pad TP PRN PRN Hemorrhoids/cleansing/soothing
[2022-02-13 16:45] LABS: Basophils % (Auto) 0.1 % (0.0-1.8); Eosinophils # (Auto) 0.1 K/mm3 (0.0-0.4); Eosinophils % (Auto) 0.7 % (0.0-4.3); Hematocrit 28.4 % (30.3-42.9); Hemoglobin 9.2 gm/dl (10.1-14.3); Lymphocytes # (Auto) 1.4 K/mm3 (1.2-5.4); Lymphocytes % (Auto) 18.9 % (13.4-35.0); Mean Corpuscular HGB Conc 32 % (30-34); Mean Corpuscular Volume 77 fl (79-97); Monocytes # (Auto) 0.4 K/mm3 (0.0-0.8); Monocytes % (Auto) 5.7 % (0.0-7.3); Platelet Count 203 K/mm3 (140-440); Red Blood Count 3.69 M/mm3 (3.65-5.03); Red Cell Distribution Width 16.2 % (13.2-15.2)
--- NOTE | 2022-02-13 18:19 | Vascular Lab Report ---
DUPLEX DOPPLER LOWER EXTREMITY VEINS, BILATERAL INDICATION: bilateral leg pain, preg at 30wks, tacchycardia. TECHNIQUE: Duplex doppler imaging was performed through the veins of both lower extremities using venous ketty kaila and other maneuvers. COMPARISON: No relevant prior imaging study available. FINDINGS: Right Common femoral vein: Negative. Right Superficial femoral vein: Negative. Right Popliteal vein: Negative. Right Calf veins: Negative. Left Common femoral vein: Negative. Left Superficial femoral vein: Negative. Left Popliteal vein: Negative. Left Calf veins: Negative. Additional findings: None.. IMPRESSION: 1. No sonographic evidence for DVT in either lower extremity. Signer Name: Javier Parker MD Signed: 02/13/2022 6:15 PM Workstation Name: [id number]
[2022-02-14] MEDS ORDERED: TETANUS,DIPH,PERTUSS(ACELL) VACCINE 0.5 ML SYRINGE IM ONE (06:00)
[2022-02-14] MEDS: IBUPROFEN 600 MG TAB PO PRN (08:39)
[2022-02-14] MEDS: PRENATAL VIT27-FE FUMARATE-FOLIC ACID VIT TAB PO SCH (10:11)
[2022-02-14] MEDS: levETIRAcetam 500 MG TAB PO SCH ×2 (10:11→23:19)
[2022-02-14] MEDS: FERROUS SULFATE 325 MG TAB PO SCH (10:11)
--- NOTE | 2022-02-14 11:47 | Consultation ---
History of Present Illness - Reason for Consult Consult date: 02/14/22 Reason for consult: hx of bipolar, scchizophrenia - History of Present Psychiatric Illness The patient was seen today. She is calm and cooperative. She is drowsy. She says she was given some pain meds. The patient says she has a history of bipolar and schizophrenia. She says she's been off her meds because the meds she was on triggered her seizures. I discussed with the patient getting back on them. She says she's been fine mentally and emotionally without them. The patient denies SI/HI or hallucinations. She says she lives with her aunt. She denies illicit drug use, alcohol and nicotine. REVIEW OF SYSTEMS Constitutional: Negative for weight loss ENT: Negative for stridor Respiratory: Negative for cough or hemoptysis All other systems reviewed and are negative MENTAL STATUS EXAMINATION General Appearance and Behavior: Age appropriate, good hygiene, wearing appropriate clothes, calm, cooperative Cooperation: Cooperative Psychomotor Behavior: Psychomotor normal Mood: depressed Affect and affective range: congruent with stated mood Thought Process: goal Thought Content: denies Speech: Normal tone and pace Suicidal Ideation: Denies Homicidal Ideation: Denies Hallucinations: Denies Delusions: None elicited Impulse Control: Normal Insight and Judgment: Normal insight and poor judgment Memory: Limited Attention: attentive Orientation: a/o Assessment (1) Hx of Bipolar and Schizophrenia Treatment Plan The patient to follow up with outpatient psych and neuro about restarting psych meds Medical: per primary Sitter: defer to primary Disposition: Do not recommend acute psychiatric inpatient treatment Will sign off. Thanks Radiation Oncologist to give all necessary outpatient resources Case staffed with Dr. Salmeron Medications and Allergies Allergies Allergy/AdvReac Type Severity Reaction Status Date / Time lavender (Lavandula Allergy Hives Verified 02/12/22 14:49 angustifolia) pollen extracts Allergy Itching Verified 02/12/22 14:49 shrimp Allergy Swelling Verified 10/19/21 21:39 Home Medications Medication Instructions Recorded Confirmed Last Taken Type Ferrous Sulfate [Feosol 325 MG tab] 1 tab PO DAILY 04/02/19 02/12/22 03/17/19 History Vit-Fe Fumar-FA [ 1 tab PO DAILY 04/02/19 02/12/22 03/31/19 History Vitamin] buPROPion SR [Wellbutrin SR] 1 tab PO DAILY 04/02/19 02/12/22 02/28/19 History HYDROcodone/APAP 5-325 [[place] 1 - 2 each PO Q4HR PRN #30 tablet 04/23/19 02/12/22 Unknown Rx 5/325] Ferrous Sulfate [Feosol 325 MG tab] 325 mg PO QDAY 30 Days #30 tablet 04/27/19 02/12/22 Unknown Rx labetaloL [Labetalol 100mg TAB] 300 mg PO BID 7 Days #14 tablet 04/27/19 02/12/22 Unknown Rx Naproxen 500 mg PO Q12H PRN #30 tablet 06/12/19 02/12/22 Unknown Rx Ondansetron [Zofran ODT TAB] 4 mg PO Q6HR PRN #15 tab.rapdis 12/31/19 02/12/22 Unknown Rx hydrOXYzine HCL [Atarax] 25 mg PO Q6HR PRN #20 tablet 04/14/21 02/12/22 Unknown Rx Sertraline [Zoloft] 25 mg PO QDAY #30 tab 10/22/21 02/12/22 Unknown Rx levETIRAcetam [Keppra TAB] 1,000 mg PO BID #60 tablet 10/23/21 02/12/22 02/11/22 21:00 Rx Ibuprofen [Motrin] 800 mg PO Q8HR PRN 21 Days #40 02/12/22 Unknown Rx tablet oxyCODONE /ACETAMINOPHEN [Percocet 1 tab PO Q4HR PRN 21 Days #30 tab 02/12/22 Unknown Rx 5/325] Potassium Chloride [K-Dur] 40 meq PO ONCE 1 Days #1 tab 02/13/22 Unknown Rx Active Meds: Active Medications Acetaminophen (Acetaminophen 325 Mg Tab) 650 mg PO Q4H PRN PRN Reason: Fever >100.5/ADAMS Albuterol (Albuterol 2.5 Mg/3 Ml Nebu) 2.5 mg IH Q4HRT PRN PRN Reason: Shortness Of Breath Ferrous Sulfate (Ferrous Sulfate 325 Mg Tab) 325 mg PO QDAY JOEY Last Admin: 02/14/22 10:11 Dose: 325 mg Hydrocortisone Acetate (Hydrocortisone 25 Mg Rectal Supp) 25 mg [place] BID PRN PRN Reason: Hemorrhoids Hydromorphone HCl (Hydromorphone 1 Mg/1 Ml Inj) 0.5 mg IV Q4H PRN PRN Reason: breakthrough pain > 7/10 Oxytocin/Sodium Chloride (Pitocin/Ns 30 Unit/500ml) 30 units in 500 mls @ 0 mls/hr IV TITR JOEY; Protocol Dextrose/Lactated Ringer's (D5lr) 1,000 mls @ 125 mls/hr IV DIRECT JOEY Last Admin: 02/13/22 09:34 Dose: 125 mls/hr Oxytocin/Sodium Chloride (Pitocin/Ns 30 Unit/500ml) 30 units in 500 mls @ 40 mls/hr IV TITR JOEY; Protocol Fentanyl/Bupivacaine/Sodium Chlor (Fentanyl-Bupiv 2 Mcg/Ml-0.125%) 200 mcg in 100 mls @ 8 mls/hr EPIDURAL TITRATE JOEY; Protocol Lactated Ringer's (Lactated Ringers) 1,000 mls @ 125 mls/hr IV DIRECT JOEY Ibuprofen (Ibuprofen 600 Mg Tab) 600 mg PO Q6H PRN PRN Reason: Pain, Mild (1-3) Last Admin: 02/14/22 08:39 Dose: 600 mg Levetiracetam (Levetiracetam 500 Mg Tab) 1,000 mg PO BID JOEY Last Admin: 02/14/22 10:11 Dose: 1,000 mg Magnesium Hydroxide (Magnesium Hydroxide (Mom) Oral Liqd Udc) 30 ml PO QHS PRN PRN Reason: Constip Unrelieved By Senna Misoprostol (Misoprostol 200 Mcg Tab) 800 mcg [place] ONCE JOEY Morphine Sulfate (Morphine 4 Mg/1 Ml Inj) 4 mg IV Q4H PRN PRN Reason: Pain , Severe (7-10) Last Admin: 02/13/22 01:38 Dose: 4 mg Morphine Sulfate (Morphine 4 Mg/1 Ml Inj) 2.5 mg IV Q15M PRN PRN Reason: BREAK Multi-Ingredient Ointment (Lanolin/Zinc/Dimethicone (Lansinoh) 7 Gm) 1 applic TP PRN PRN PRN Reason: dryness/cracking Multivitamins/Iron/Calcium ( [id number]-He Fumarate-Folic Acid Vit Tab) 1 each PO QDAY JOEY Last Admin: 02/14/22 10:11 Dose: 1 each Naloxone HCl (Naloxone 0.4 Mg/1 Ml Inj) 0.2 mg IV Q2MIN PRN PRN Reason: Res Rate </= 8 or 02 SAT < 92% Ondansetron HCl (Ondansetron 4 Mg/2 Ml Inj) 4 mg IV Q8H PRN PRN Reason: Nausea And Vomiting Oxycodone/Acetaminophen (Oxycodone /Acetaminophen 5-325mg Tab) 2 tab PO Q4H PRN PRN Reason: Pain, Moderate (4-6) Last Admin: 02/13/22 22:30 Dose: 2 tab Promethazine HCl (Promethazine 25 Mg Tab) 25 mg PO Q6H PRN PRN Reason: Nausea And Vomiting Promethazine HCl (Promethazine 25 Mg Rect Supp) 25 mg [place] Q6H PRN PRN Reason: Nausea And Vomiting Senna (Sennosides 8.6 Mg Tab) 17.2 mg PO QHS PRN PRN Reason: Constipation Simethicone (Simethicone 80 Mg Chew Tab) 80 mg PO Q6H PRN PRN Reason: Gas pain Sodium Chloride (Sodium Chloride 0.9% 10 Ml Flush Syringe) 10 ml IV PRN JOEY Sodium Chloride (Sodium Chloride 0.9% 10 Ml Flush Syringe) 10 ml IV PRN JOEY [place]/Glycerin ([place]/ Glycerin Pad) 1 each TP PRN PRN PRN Reason: Hemorrhoids/cleansing/soothing Mental Status Exam - Vital signs Last Vital Signs Temp 98.4 F 02/14/22 08:02 Pulse 84 02/14/22 08:02 Resp 20 02/14/22 08:02 BP 103/55 02/14/22 08:02 Pulse Ox 98 02/14/22 08:40 Results Result Diagrams: 02/13/22 16:24 02/12/22 15:46 Abnormal lab results 02/13/22 Range/Units 16:24 Hgb 9.2 L (10.1-14.3) gm/dl Hct 28.4 L (30.3-42.9) % MCV 77 L (79-97) fl MCH 25 L (28-32) pg RDW 16.2 H (13.2-15.2) % Seg Neutrophils % 74.6 H (40.0-70.0) % All other labs normal.
[2022-02-14] MEDS: oxyCODONE /ACETAMINOPHEN 5-325MG TAB PO PRN ×2 (14:14→20:09)
--- NOTE | 2022-02-14 19:21 | Progress Note ---
Assessment and Plan S/p Csection POD # 2 Seizure D/o Bipolar disorder Pt. stable Psych consult done D/c home in am Subjective Date of service: 02/14/22 Principal diagnosis: POD#2 C/S Interval history: Pt. without complaint. Positive BM. Tolerating regular diet. Ambulating without difficulty,. Good pain control. Objective - Constitutional Vitals: Vital Signs - 12hr 02/14/22 02/14/22 02/14/22 08:02 08:40 15:21 Temperature 98.4 F 98.5 F Pulse Rate 84 85 Respiratory 20 16 Rate Blood Pressure 103/55 123/65 O2 Sat by Pulse 98 98 Oximetry O2 Sat by Pulse 98 Oximetry [ Throughout] 02/14/22 15:30 Temperature Pulse Rate Respiratory Rate Blood Pressure O2 Sat by Pulse Oximetry O2 Sat by Pulse 98 Oximetry [ Throughout] General appearance: Present: no acute distress - Respiratory Respiratory effort: normal Respiratory: bilateral: CTA - Cardiovascular Rhythm: regular Extremities: no ischemia - Gastrointestinal General gastrointestinal: Present: tender (appropriately tender), other (Incision c/d/i ) - Psychiatric Psychiatric: appropriate mood/affect - Additional findings Additional findings: Uterus firm - Labs CBC & Chem 7: 02/13/22 16:24 02/12/22 15:46 Medications & Allergies - Medications Allergies/Adverse Reactions: Allergies lavender (Lavandula angustifolia) Allergy (Verified 02/12/22 14:49) Hives pollen extracts Allergy (Verified 02/12/22 14:49) Itching shrimp Allergy (Verified 10/19/21 21:39) Swelling Home Medications: Home Medications Medication Instructions Recorded Confirmed Last Taken Type Ferrous Sulfate [Feosol 325 MG tab] 1 tab PO DAILY 04/02/19 02/12/22 03/17/19 History Vit-Fe Fumar-FA [ 1 tab PO DAILY 04/02/19 02/12/22 03/31/19 History Vitamin] buPROPion SR [Wellbutrin SR] 1 tab PO DAILY 04/02/19 02/12/22 02/28/19 History HYDROcodone/APAP 5-325 [[place] 1 - 2 each PO Q4HR PRN #30 tablet 04/23/19 02/12/22 Unknown Rx 5/325] Ferrous Sulfate [Feosol 325 MG tab] 325 mg PO QDAY 30 Days #30 tablet 04/27/19 02/12/22 Unknown Rx labetaloL [Labetalol 100mg TAB] 300 mg PO BID 7 Days #14 tablet 04/27/19 02/12/22 Unknown Rx Naproxen 500 mg PO Q12H PRN #30 tablet 06/12/19 02/12/22 Unknown Rx Ondansetron [Zofran ODT TAB] 4 mg PO Q6HR PRN #15 tab.rapdis 12/31/19 02/12/22 Unknown Rx hydrOXYzine HCL [Atarax] 25 mg PO Q6HR PRN #20 tablet 04/14/21 02/12/22 Unknown Rx Sertraline [Zoloft] 25 mg PO QDAY #30 tab 10/22/21 02/12/22 Unknown Rx levETIRAcetam [Keppra TAB] 1,000 mg PO BID #60 tablet 10/23/21 02/12/22 02/11/22 21:00 Rx Ibuprofen [Motrin] 800 mg PO Q8HR PRN 21 Days #40 02/12/22 Unknown Rx tablet oxyCODONE /ACETAMINOPHEN [Percocet 1 tab PO Q4HR PRN 21 Days #30 tab 02/12/22 Unknown Rx 5/325] Potassium Chloride [K-Dur] 40 meq PO ONCE 1 Days #1 tab 02/13/22 Unknown Rx Active Medications: Generic Name Dose Route Start Last Admin Trade Name Freq PRN Reason Stop Dose Admin Acetaminophen 650 mg 02/12/22 16:31 Acetaminophen 325 Mg Tab PO Q4H PRN Fever >100.5/ADAMS Albuterol 2.5 mg 02/12/22 19:44 Albuterol 2.5 Mg/3 Ml Nebu IH Q4HRT PRN Shortness Of Breath Ferrous Sulfate 325 mg 02/13/22 10:00 02/14/22 10:11 Ferrous Sulfate 325 Mg Tab PO 325 mg QDAY JOEY Administration Hydrocortisone Acetate 25 mg 02/12/22 16:31 Hydrocortisone 25 Mg Rectal Supp [place] BID PRN Hemorrhoids Hydromorphone HCl 0.5 mg 02/12/22 19:51 Hydromorphone 1 Mg/1 Ml Inj IV Q4H PRN breakthrough pain > 7/10 Oxytocin/Sodium Chloride 30 units in 500 mls @ 0 mls/hr 02/12/22 16:00 Pitocin/Ns 30 Unit/500ml IV TITR JOEY Protocol As Directed Dextrose/Lactated Ringer's 1,000 mls @ 125 mls/hr 02/12/22 17:00 02/13/22 09:34 D5lr IV 125 mls/hr DIRECT JOEY Administration Oxytocin/Sodium Chloride 30 units in 500 mls @ 40 mls/hr 02/12/22 17:00 Pitocin/Ns 30 Unit/500ml IV TITR [facility] Protocol Fentanyl/Bupivacaine/Sodium Chlor 200 mcg in 100 mls @ 8 mls/hr 02/12/22 20:00 Fentanyl-Bupiv 2 Mcg/Ml-0.125% EPIDURAL TITRATE JOEY Protocol Lactated Ringer's 1,000 mls @ 125 mls/hr 02/12/22 21:30 Lactated Ringers IV DIRECT JOEY Ibuprofen 600 mg 02/12/22 16:31 02/14/22 08:39 Ibuprofen 600 Mg Tab PO 600 mg Q6H PRN Administration Pain, Mild (1-3) Levetiracetam 1,000 mg 02/12/22 16:00 02/14/22 10:11 Levetiracetam 500 Mg Tab PO 1,000 mg BID JOEY Administration Magnesium Hydroxide 30 ml 02/12/22 16:31 Magnesium Hydroxide (Mom) Oral Liqd Udc PO QHS PRN Constip Unrelieved By Nayla Misoprostol 800 mcg 02/12/22 20:00 Misoprostol 200 Mcg Tab [place] ONCE JOEY Morphine Sulfate 4 mg 02/12/22 16:31 02/13/22 01:38 Morphine 4 Mg/1 Ml Inj IV 4 mg Q4H PRN Administration Pain , Severe (7-10) Morphine Sulfate 2.5 mg 02/12/22 19:51 Morphine 4 Mg/1 Ml Inj IV Q15M PRN BREAK Multi-Ingredient Ointment 1 applic 02/12/22 16:31 Lanolin/Zinc/Dimethicone (Lansinoh) 7 Gm TP PRN PRN dryness/cracking Multivitamins/Iron/Calcium 1 each 02/13/22 10:00 02/14/22 10:11 Qxy65-Vm Fumarate-Folic Acid Vit Tab PO 1 each QDAY JOEY Administration Naloxone HCl 0.2 mg 02/12/22 19:51 Naloxone 0.4 Mg/1 Ml Inj IV Q2MIN PRN Res Rate </= 8 or 02 SAT < 92% Ondansetron HCl 4 mg 02/12/22 19:51 Ondansetron 4 Mg/2 Ml Inj IV Q8H PRN Nausea And Vomiting Oxycodone/Acetaminophen 2 tab 02/12/22 16:31 02/14/22 14:14 Oxycodone /Acetaminophen 5-325mg Tab PO 2 tab Q4H PRN Administration Pain, Moderate (4-6) Promethazine HCl 25 mg 02/12/22 19:51 Promethazine 25 Mg Tab PO Q6H PRN Nausea And Vomiting Promethazine HCl 25 mg 02/12/22 19:51 Promethazine 25 Mg Rect Supp [place] Q6H PRN Nausea And Vomiting Senna 17.2 mg 02/12/22 16:31 Sennosides 8.6 Mg Tab PO QHS PRN Constipation Simethicone 80 mg 02/12/22 16:31 Simethicone 80 Mg Chew Tab PO Q6H PRN Gas pain Sodium Chloride 10 ml 02/12/22 17:00 Sodium Chloride 0.9% 10 Ml Flush Syringe IV PRN JOEY Sodium Chloride 10 ml 02/12/22 20:00 Sodium Chloride 0.9% 10 Ml Flush Syringe IV PRN JOEY [place]/Glycerin 1 each 02/12/22 16:31 [place]/ Glycerin Pad TP PRN PRN Hemorrhoids/cleansing/soothing
[2022-02-15] MEDS: oxyCODONE /ACETAMINOPHEN 5-325MG TAB PO PRN ×2 (05:12→12:45)
[2022-02-15] MEDS ORDERED: TETANUS,DIPH,PERTUSS(ACELL) VACCINE 0.5 ML SYRINGE IM ONE (06:00)
[2022-02-15] MEDS: FERROUS SULFATE 325 MG TAB PO SCH (10:15)
[2022-02-15] MEDS: PRENATAL VIT27-FE FUMARATE-FOLIC ACID VIT TAB PO SCH (10:15)
[2022-02-15] MEDS: levETIRAcetam 500 MG TAB PO SCH (10:15)
--- NOTE | 2022-02-15 10:36 | Progress Note ---
Assessment and Plan A: POD#3- stable P: Discharge home today Discharge instructions given Subjective - Subjective Date of service: 02/15/22 Principal diagnosis: POD#3 C/S - stable Patient reports: appetite normal, flatus [place]: doing well Objective - Vital Signs Latest vital signs: Vital Signs Temp Pulse Resp BP Pulse Ox Pulse Ox 02/15/22 08:35 100 02/15/22 07:55 98.2 F 83 20 107/56 95 02/15/22 06:12 18 02/15/22 05:12 20 02/15/22 01:49 98.1 F 74 18 105/55 95 02/14/22 21:09 18 02/14/22 20:09 20 100 02/14/22 15:30 98 02/14/22 15:21 98.5 F 85 16 123/65 98 Intake and Output 02/14/22 02/15/22 02/15/22 22:59 06:59 14:59 Intake Total 600 240 240 Balance 600 240 240 Intake: Oral 600 240 Intake, Free Water 240 Other: Total, Intake Amount 360 240 # Voids Void 1 1 1 # Bowel Movements 1 1 1 - Exam Breasts: Present: deferred Cardiovascular: Present: Regular rate Lungs: Present: Clear to auscultation Abdomen: Present: soft Vulva: both: normal Uterus: Present: fundal height below umbilicus Extremities: Present: normal Deep Tendon Reflex Grade: Normal +2
--- NOTE | 2022-02-15 10:37 | Discharge Summary ---
Providers - Providers Date of Admission: 02/12/22 14:18 Date of discharge: 02/15/22 Attending physician: JEREMIAH MERCER 02/13/22 14:29 psychiatry consult [Consult to Mental Health] [CONS] Urgent Reason For Exam: hx of bipolar disorder and suicide attempt Primary care physician: JEREMIAH MERCER Hospitalization Reason for admission: section Delivery: Procedure: repeat low transverse Incision: intact complications: none Discharge diagnosis: IUP at term delivered baby: male Condition at discharge: Good Disposition: HOME / SELF CARE / HOMELESS Plan - Discharge Medications Prescriptions: Potassium Chloride [K-Dur] 40 meq PO ONCE 1 Days #1 tab Ibuprofen [Motrin] 800 mg PO Q8HR PRN 21 Days #40 tablet PRN Reason: Pain, Moderate (4-6) oxyCODONE /ACETAMINOPHEN [Percocet 5/325] 1 tab PO Q4HR PRN 21 Days #30 tab PRN Reason: Pain , Severe (7-10) - Provider Discharge Summary Activity: routine, no sex for 6 weeks, no strenuous exercise Diet: routine Instructions: routine Additional instructions: [] Smoking cessation referral if applicable(refer to patient education folder for contact #) [] Refer to [facility] Booklet Call your doctor immediately for: * Fever > 100.5 * Heavy vaginal bleeding ( >1 pad per hour) * Severe persistent headache * Shortness of breath * Reddened, hot, painful area to leg or breast * Drainage or odor from incision. * Keep incision clean and dry at all times and follow doctor's instructions regarding bathing/showering - Follow up plan Follow up: JEREMIAH MERCER MD [Primary Care Provider] - 14 Days Forms: [facility] Discharge Summary
[2022-02-15 14:19] VITALS: BP 114/58
== END 2022-02-15 14:10 | disposition home or self-care (01) | DRG 765 ==
LOC: TRG 14:16 → APU 14:16 → TRG 16:41 → OB 21:09
PROVIDERS: ADMIT Obstetrics & Gynecology; ATTEND Obstetrics & Gynecology
PROC: 10D00Z1 Extraction of Products of Conception, Low, Open Approach (ICD-10-PCS; principal; 2022-02-12)
PROC: 3E0T3BZ Introduction of Anesthetic Agent into Peripheral Nerves and Plexi, Percutaneous Approach (ICD-10-PCS; 2022-02-12)
PROC: 3E0234Z Introduction of Serum, Toxoid and Vaccine into Muscle, Percutaneous Approach (ICD-10-PCS; 2022-02-15)
DX: O34.211 Maternal care for low transverse scar from previous cesarean delivery (principal); O99.354 Diseases of the nervous system complicating childbirth; O42.02 Full-term premature rupture of membranes, onset of labor within 24 hours of rupture; Z3A.39 39 weeks gestation of pregnancy; Z37.0 Single live birth; Z20.822 Contact with and (suspected) exposure to COVID-19; O99.52 Diseases of the respiratory system complicating childbirth; J45.909 Unspecified asthma, uncomplicated; O77.0 Labor and delivery complicated by meconium in amniotic fluid; O99.214 Obesity complicating childbirth; E66.01 Morbid (severe) obesity due to excess calories; O34.13 Maternal care for benign tumor of corpus uteri, third trimester; D25.9 Leiomyoma of uterus, unspecified; G40.909 Epilepsy, unspecified, not intractable, without status epilepticus; F31.9 Bipolar disorder, unspecified; F20.9 Schizophrenia, unspecified; Z23 Encounter for immunization; Z88.8 Allergy status to other drugs, medicaments and biological substances; Z91.013 Allergy to seafood
CPT/HCPCS: 36415; 76815; 76819; 80053; 80307; 81001; 83036; 85025; 86850; 86900; 86901; 87086; 87591; 88307; 93970; G0378; J3490; J7060; J0690; J1885; J2270; J2370; J2405; J2765; J7120; J7121; U0003

== ENCOUNTER 2022-03-23 12:43 | Emergency (ER) | payer MEDICAID ==
[2022-03-23 12:53] VITALS: BP 148/94
[2022-03-23 13:45] LABS: Basophils % (Auto) 0.3 % (0.0-1.8); Eosinophils # (Auto) 0.1 K/mm3 (0.0-0.4); Eosinophils % (Auto) 1.3 % (0.0-4.3); Hematocrit 35.1 % (30.3-42.9); Hemoglobin 11.6 gm/dl (10.1-14.3); Lymphocytes # (Auto) 1.9 K/mm3 (1.2-5.4); Lymphocytes % (Auto) 20.2 % (13.4-35.0); Mean Corpuscular HGB Conc 33 % (30-34); Mean Corpuscular Volume 76 fl (79-97); Monocytes # (Auto) 0.4 K/mm3 (0.0-0.8); Monocytes % (Auto) 3.8 % (0.0-7.3); Platelet Count 274 K/mm3 (140-440); Red Blood Count 4.63 M/mm3 (3.65-5.03); Red Cell Distribution Width 16.4 % (13.2-15.2)
[2022-03-23 14:08] LABS: Blood Urea Nitrogen 10 mg/dL (7-17); Calcium 8.6 mg/dL (8.4-10.2); Hemolysis Index 1
[2022-03-23 14:09] LABS: Alanine Aminotransferase < 5 units/L (7-56); BUN/Creatinine Ratio 17
== END 2022-03-23 17:16 | disposition left against medical advice (07) ==
LOC: ED 12:43
DX: N93.9 Abnormal uterine and vaginal bleeding, unspecified (principal); Z98.890 Other specified postprocedural states; Z53.21 Procedure and treatment not carried out due to patient leaving prior to being seen by health care provider
CPT/HCPCS: 36415; 80053; 83690; 84703; 85025